=== PATIENT | female | born 2000 | race Caucasian/White ===

== ENCOUNTER 2022-07-03 19:42 | Emergency (ER) | payer MEDICAID | END 2022-07-03 23:00 | disposition home or self-care (01) | LOC: JD.ED 19:42 | DX: O99.891 Other specified diseases and conditions complicating pregnancy (principal); R10.9 Unspecified abdominal pain; R19.7 Diarrhea, unspecified; Z3A.18 18 weeks gestation of pregnancy | CPT/HCPCS: 36415; 80053; 85025; 86140; 99283; 99284 ==

== ENCOUNTER 2022-11-27 06:15 | Inpatient (IN) | payer MEDICAID ==
[2022-11-27] MEDS ORDERED: Nalbuphine 10 MG/0.5 ML Syringe IVPUSH PRN (06:32)
[2022-11-27] MEDS ORDERED: Calcium Carbonate 500 MG Tab.Chew PO PRN (06:32)
[2022-11-27] MEDS ORDERED: Ondansetron 4 MG/2 ML SDV IVPUSH PRN (06:32)
[2022-11-27] MEDS ORDERED: Oxytocin/Lactated Ringers 10 UNIT/1,000 ML BAG IV SCH ×2 (06:45)
[2022-11-27] MEDS: Lactated Ringers 1,000 ML IV SCH ×4 (06:50→10:21)
[2022-11-27 07:03] LABS: BASOPHILS ABSOLUTE AUTO 0.02 K/mm3 (0.01-0.08); BASOPHILS PERCENT AUTO 0.2 % (0.1-1.2); EOSINOPHILS ABSOLUTE AUTO 0.07 K/mm3 (0.04-0.36); EOSINOPHILS PERCENT AUTO 0.7 (0.7-5.8); HEMATOCRIT 37.8 % (34.1-44.9); HEMOGLOBIN 13.2 gm/dl (11.2-15.7); IMMATURE GRAN ABSOLUTE AUTO 0.02 K/mm3 (0.00-0.10); IMMATURE GRAN PERCENT AUTO 0.2 % (<=1.0); LYMPHOCYTES ABSOLUTE AUTO 1.82 K/mm3 (1.18-3.74); LYMPHOCYTES PERCENT AUTO 17.3 % (19.3-51.7); MEAN CORPUSCULAR HGB CONC 34.9 g/dl (32.2-35.5); MEAN CORPUSCULAR VOLUME 85.9 fl (79.4-94.8); MEAN PLATELET VOLUME 10.2 fl (9.4-12.3); MONOCYTES ABSOLUTE AUTO 0.73 K/mm3 (0.24-0.36); MONOCYTES PERCENT AUTO 6.9 % (4.7-12.5); NEUTROPHILS ABSOLUTE AUTO 7.86 K/mm3 (1.56-6.13); NEUTROPHILS PERCENT AUTO 74.7 % (34.0-71.1); PLATELET COUNT,PLT 274 K/mm3 (182-369); WHITE BLOOD CELL COUNT,WBC 10.52 K/mm3 (3.98-10.04)
[2022-11-27] MEDS ORDERED: diphenhydrAMINE 50 MG/ML SDV IVPUSH PRN (07:23)
[2022-11-27] MEDS ORDERED: fentaNYL 100 MCG/2 ML SDV EPIDUR PRN (07:23)
[2022-11-27] MEDS ORDERED: Bupivacaine/fentaNYL/NS 100 ML Bag EPIDUR PRN (07:23)
[2022-11-27] MEDS ORDERED: ePHEDrine 50 MG/ML SDV IVPUSH PRN (07:23)
[2022-11-27] MEDS ORDERED: Methylergonovine 0.2 MG/1 ML Amp ONE (12:15)
[2022-11-27] MEDS ORDERED: Methylergonovine 0.2 MG/1 ML Amp IM ONE (12:18)
[2022-11-27] MEDS ORDERED: Misoprostol 200 MCG Tab PO STA (12:31)
[2022-11-27] MEDS ORDERED: Acetaminophen 325 MG Tab PO PRN (13:14)
[2022-11-27] MEDS ORDERED: Docusate Sodium 100 MG Cap PO PRN (13:14)
[2022-11-27] MEDS ORDERED: Benzocaine/Menthol 20%-0.5% Spray 78 GM Cannister TOP PRN (13:14)
[2022-11-27] MEDS: Witch Hazel Medicated Pads 40/Jar TOP PRN (14:33)
[2022-11-27] MEDS: Ibuprofen 600 MG Tab PO PRN (19:45)
[2022-11-28] MEDS: Ibuprofen 600 MG Tab PO PRN ×2 (04:36→21:46)
[2022-11-28] MEDS ORDERED: Enoxaparin 40 MG/0.4 ML Syringe SUBCUT SCH (08:00)
[2022-11-28] MEDS: Enoxaparin 40 MG/0.4 ML Syringe SUBCUT SCH (12:17)
[2022-11-28] MEDS: Witch Hazel Medicated Pads 40/Jar TOP PRN (18:34)
[2022-11-29] MEDS: Ibuprofen 600 MG Tab PO PRN ×2 (06:22→12:38)
[2022-11-29] MEDS: Enoxaparin 40 MG/0.4 ML Syringe SUBCUT SCH (12:14)
== END 2022-11-29 13:00 | disposition home or self-care (01) | DRG 806 ==
LOC: JD.OBCHECK 06:15 → JD.OB 06:20 → JD.OBCHECK 06:56 → OBSVTOIN 12:08 → JD.OB 12:09
PROVIDERS: ADMIT Obstetrics & Gynecology; ATTEND Obstetrics & Gynecology
PROC: 10E0XZZ Delivery of Products of Conception, External Approach (ICD-10-PCS; principal; 2022-11-27)
PROC: 0KQM0ZZ Repair Perineum Muscle, Open Approach (ICD-10-PCS; 2022-11-27)
PROC: 10907ZC Drainage of Amniotic Fluid, Therapeutic from Products of Conception, Via Natural or Artificial Opening (ICD-10-PCS; 2022-11-27)
PROC: 3E0R3BZ Introduction of Anesthetic Agent into Spinal Canal, Percutaneous Approach (ICD-10-PCS; 2022-11-27)
PROC: 00HU33Z Insertion of Infusion Device into Spinal Canal, Percutaneous Approach (ICD-10-PCS; 2022-11-27)
PROC: 3E0DXGC Introduction of Other Therapeutic Substance into Mouth and Pharynx, External Approach (ICD-10-PCS; 2022-11-27)
DX: O99.12 Other diseases of the blood and blood-forming organs and certain disorders involving the immune mechanism complicating childbirth (principal); D68.51 Activated protein C resistance; Z37.0 Single live birth; O72.1 Other immediate postpartum hemorrhage; O70.1 Second degree perineal laceration during delivery; Z90.49 Acquired absence of other specified parts of digestive tract; Z98.890 Other specified postprocedural states; Z3A.39 39 weeks gestation of pregnancy
CPT/HCPCS: 36415; 51701; 51702; 59025; 59409; 85025; 86850; 86900; 86901; A9270-GY; J1650; J2210; J2590; J3010; J3490; J7120